=== PATIENT | female | born 1995 ===

== ENCOUNTER 2018-09-10 11:58 | Outpatient (CLI) | payer OTHER | END 2018-09-10 12:02 | disposition home or self-care (01) | LOC: SONOGRAMA 11:58 | DX: E03.8 Other specified hypothyroidism (principal); N20.0 Calculus of kidney; R31.9 Hematuria, unspecified ==

== ENCOUNTER 2018-10-04 11:18 | Outpatient (CLI) | payer OTHER | END 2018-10-04 11:39 | disposition home or self-care (01) | LOC: RAD 11:18 | DX: N20.0 Calculus of kidney (principal); R31.21 Asymptomatic microscopic hematuria ==

== ENCOUNTER 2018-10-15 11:50 | Outpatient (CLI) | payer OTHER | END 2018-10-15 12:01 | disposition home or self-care (01) | LOC: LAB 11:50 | DX: R31.21 Asymptomatic microscopic hematuria (principal); Z51.81 Encounter for therapeutic drug level monitoring ==

== ENCOUNTER 2018-10-16 09:16 | Outpatient (CLI) | payer OTHER | END 2018-10-16 09:26 | disposition home or self-care (01) | LOC: TOM 09:16 | DX: R31.21 Asymptomatic microscopic hematuria (principal); N20.0 Calculus of kidney ==

== ENCOUNTER 2021-04-21 13:57 | Outpatient (CLI) | payer OTHER | END 2021-04-21 14:04 | disposition home or self-care (01) | LOC: SONOGRAMA 13:57 | PROVIDERS: ATTEND Obstetrics & Gynecology Gynecology | DX: N63.21 Unspecified lump in the left breast, upper outer quadrant (principal); N64.4 Mastodynia ==